=== PATIENT | male | born 1980 | race American Indian/Alaskan Native ===

== ENCOUNTER 2016-10-30 03:05 | Inpatient (IN) | payer SELFPAY ==
--- NOTE | 2016-10-30 05:43 | ED PDOC ---
HPI: Psych/Substance Abuse Time Seen by Provider: 10/30/16 03:25 Chief Complaint (Nursing): Psychiatric Evaluation Chief Complaint (Provider): Psychiatric Evaluation History Per: Patient History/Exam Limitations: no limitations Onset/Duration Of Symptoms: Days Current Symptoms Are (Timing): Still Present Additional Complaint(s): Kemar is a 36-year-old male with a history of chronic heroin abuse, who presents to the ED for crisis evaluation. Patient admits to having suicidal ideations today and has been hearing voices for 1 month. Denies prior psychiatric history. PMD: none reported Past Medical History Reviewed: Historical Data, Nursing Documentation, Vital Signs Vital Signs: Last Vital Signs Temp 97.6 F 10/30/16 03:24 Pulse 97 H 10/30/16 03:24 Resp 16 10/30/16 03:24 BP 169/103 H 10/30/16 03:24 Pulse Ox 98 10/30/16 03:24 - Medical History PMH: Post Traumatic Stress Disorder - Surgical History Surgical History: No Surg Hx - Family History Family History: States: Unknown Family Hx - Social History Current smoker - smoking cessation education provided: Yes (2 packs daily) Drugs: Opiates (heroin daily) - Immunization History Hx Tetanus Toxoid Vaccination: No Hx Influenza Vaccination: No Hx Pneumococcal Vaccination: No - Home Medications Home Medications: Ambulatory Orders Medication Instructions Recorded No Known Home Med 10/27/16 - Allergies Allergies/Adverse Reactions: Allergies Allergy/AdvReac Type Severity Reaction Status Date / Time No Known Allergies Allergy Verified 11/27/15 00:43 Review of Systems ROS Statement: Except As Marked, All Systems Reviewed And Found Negative Psych: Positive for: Suicidal ideation, Other (Hearing voices) Physical Exam - Reviewed Nursing Documentation Reviewed: Yes Vital Signs Reviewed: Yes - Physical Exam Cardiovascular/Chest: Positive for: Regular Rate, Rhythm. Negative for: Murmur Respiratory: Positive for: Normal Breath Sounds. Negative for: Accessory Muscle Use, Respiratory Distress Gastrointestinal/Abdominal: Positive for: Normal Exam, Soft. Negative for: Tenderness Neurologic/Psych: Positive for: Alert, Oriented - Laboratory Results Result Diagrams: 10/30/16 06:39 10/30/16 06:39 - ECG O2 Sat by Pulse Oximetry: 98 (RA) Pulse Ox Interpretation: Normal Medical Decision Making Medical Decision Making: Time: 05:27 Initial Impression: Psych evaluation Initial Plan: --Labs with urine drug screen, salicylate, and acetaminophen --EKG --Pending crisis evaluation --Pending medical clearance --Urine negative for infection, all labs negative utox positve for opiates and cocaine Time: 06:56 --Patient will be admitted inpatient to Psychiatry under service of Dr. Stewart for schizophrenia Scribe Attestation: Documented by Allie Roblero, acting as a scribe for Chet Thacker MD Provider Scribe Attestation: All medical record entries made by the Scribe were at my direction and personally dictated by me. I have reviewed the chart and agree that the record accurately reflects my personal performance of the history, physical exam, medical decision making, and the department course for this patient. I have also personally directed, reviewed, and agree with the discharge instructions and disposition. Disposition - Clinical Impression Clinical Impression: Schizophrenia - Patient ED Disposition Is Patient to be Admitted: Yes - Disposition Disposition Time: 05:45 Condition: STABLE
[2016-10-30 06:41] LABS: BASO % 0.5 % (0.0-2.0); EOS # 0.2 K/uL (0.0-0.7); EOS % 3.1 % (0.0-4.0); HEMATOCRIT 41.9 % (35.0-51.0); LYMPH # 1.9 K/uL (1.0-4.3); LYMPH % 32.6 % (20.0-40.0); MEAN CELL VOLUME 87.3 fl (80.0-94.0); MEAN CORPUSCULAR HEMOGLOBIN 28.5 pg (27.0-31.0); MEAN CORPUSCULAR HGB CONC 32.7 g/dL (33.0-37.0); MEAN PLATELET VOLUME 9.5 fl (7.2-11.7); MONO # 0.5 K/uL (0.0-0.8); MONO % 8.2 % (0.0-10.0); NEUT # 3.3 K/uL (1.8-7.0); NEUT % 55.6 % (50.0-75.0); NRBC % 0.1 % (0.0-0.0); RED CELL DISTRIBUTION WIDTH 14.4 % (11.5-14.5)
[2016-10-30 06:55] LABS: ALB/GLOB RATIO 1.4 (1.0-2.1); ALCOHOL SERUM < 10 mg/dl (0-10); ALKALINE PHOSPHATASE 57 U/L (38-126); ALT/SGPT 33 U/L (21-72); AST/SGOT 15 U/L (17-59); BILIRUBIN,TOTAL 0.3 mg/dl (0.2-1.3); BLOOD UREA NITROGEN 21 mg/dl (9-20); CALCIUM 9.3 mg/dL (8.4-10.2); CARBON DIOXIDE 29 mmol/L (22-30); CHLORIDE 103 mmol/L (98-107); GFR AFRICAN-AMERICAN > 60; GLUCOSE,RANDOM 89 mg/dL (75-110); POTASSIUM 4.2 MMOL/L (3.6-5.0); SODIUM 142 mmol/l (132-148); TOTAL PROTEIN 7.5 G/DL (6.3-8.2)
[2016-10-30 07:11] LABS: RBC URINE 2 /hpf (0-3); URINE BILIRUBIN NEGATIVE (NEGATIVE); URINE BLOOD SMALL (NEGATIVE); URINE COLOR YELLOW (YELLOW); URINE GLUCOSE (UA) NEG (Normal); URINE KETONE NEGATIVE (NEGATIVE); URINE LEUKOCYTE ESTERASE NEG Leu/uL (Negative); URINE PROTEIN NEGATIVE (NEGATIVE); URINE UROBILINOGEN 0.2-1.0 mg/dL (0.2-1.0); WBC URINE < 1 /hpf (0-5)
[2016-10-30 08:43] VITALS: O2SAT 99
[2016-10-30] MEDS ORDERED: Magnesium Hydroxide Susp 30 ml UD PO PRN (09:35)
[2016-10-30] MEDS ORDERED: Alum-Mag Hydrox-Simethicone Susp (30 mL) PO PRN (09:35)
[2016-10-30] MEDS ORDERED: DiphenhydrAMINE 50 mg/ml Inj IM PRN (09:35)
--- NOTE | 2016-10-30 10:35 | CARD ---
APPROVED REPORT EKG Measurement Heart [id number] IN [id number] [id number] <Conclusion> Sinus bradycardia Otherwise normal ECG
--- NOTE | 2016-10-30 11:15 | PCM.BM ---
<Amy Low - Last Filed: 10/30/16 11:13> Treatment Plan Problems - Problems identified on initial assessmt Problem 1 Date Initiated: 10/30/16 Status: Active Problem 2 Date Initiated: 10/30/16 Status: Active Problem 3 Date Initiated: 10/30/16 Status: Active Treatment assets and liabiliti Patient Assests: ADL independent, physically healthy Patient Liabilities: financial problems, poor support system, substance abuse, other (homelessness) - Milieu Protocol Maintain good personal hygiene: daily Encourage regular showers, daily Remind patient to perform daily oral care, daily Assist patient to perform ADL's Maintain personal safety: every shift Educate patient to report safety concerns to staff, every shift Monitor environment for contraband/sharps Medication safety: Monitor for expected outcome, potential side effects: every shift, Assess barriers to learning: every shift, Assess readiness for medication education: every shift Discharge/Continuing Care - Education Needs Education Needs: Patient Medication, Patient Diagnosis/Disease Process, Patient Coping Skills, Patient Activities of Daily Living, Patient Personal Hygiene/ Grooming - Discharge Discharge Criteria: Free of Suicidal thoughts, Normal sleep pattern, No longer exhibiting s/s of withdrawal <Amina Lopez - Last Filed: 11/01/16 16:10> Treatment assets and liabiliti Patient Assests: adapts well, cooperative, ADL independent, physically healthy, negotiates basic needs Patient Liabilities: financial problems, poor support system, substance abuse, other Family Contact Family involvement: Family/SO is involved Family contact: Patient agrees to contact Family contact name: Charlene(mother) ([phone]) Family contacted how many times per week?: 1 Family contact comment: [employer] placed call to patients mother to discuss precursors to hospitalization, collect further collateral and address family concerns. [employer] was unable to leave voicemail. [employer] to attempt call at later time. - Goals for Treatment Patient goals for treatment: Patient to be encouraged to attend 3-6 groups/ weekly to identify at least 2 contributing factors to worsening depression/ continued illicit substance abuse, for development of coping skills, and improvement in insight. Psychoeducation provided regarding benefits of medication management and compliance with aftercare to reduce risk of future hospitalizations and ensure safety in the community. Patient currently not agreeable to inpatient rehab referral but is agreeable to [facility], [facility] and [facility] referral upon further stabilization. Discharge/Continuing Care - Education Needs Education Needs: Family Medication, Family Community resources, Family Aftercare Safety Plan, Patient Medication, Patient Diagnosis/Disease Process, Patient Coping Skills, Patient Community resources, Patient Aftercare Safety Plan - Discharge Discharge Criteria: Tolerates medication w/o severe side effects, Free of Suicidal thoughts, Normal sleep pattern, Ability to care for self <Angelo Rockwell - Last Filed: 11/02/16 10:11>
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
--- NOTE | 2016-10-30 16:45 | CP.PCM.CON ---
History of Present Illness - History of Present Illness History of Present Illness: Pt is a 36 yo M with no significant medical history, admitted to psychiatry inpatient unit for schizophrenia. Patient does not offer any complaints at this time. Pt evasive during interview, reluctant to give answers; when answers were given, were one word answers; questions had to be repeated multiple times. Pt has poor eye contact and is poor/unreliable historian. PMH: none, denies Past surgical hx: denies Family hx: denies family hx stroke, [place], htn, dm2 Allergies: NKDA Medications: denies taking medications Social Hx: smokes 1/2 ppd for 10 yrs, drinks almost daily, uses marijuana, cocaine, heroin regularly (last heroin use before coming to ED, last cocaine use the day before). ROS: General: Denies fevers, chills. HEENT: Denies headaches, vision changes, hearing changes. Skin: Denies rash/color changes. Cardiovascular: Denies new onset chest pain, palpitations. Respiratory: Denies shortness of breath, cough. Gastrointestinal: Denies vomiting, diarrhea, constipation. No blood in the stool. MSK: Denies generalized weakness/pains. Neuro: Denies problems with balance, dizziness. Review of Systems - Review of Systems Review of Systems: as per HPI Past Patient History - Past Social History Smoking Status: Heavy Smoker > 10 Cigarettes Daily Drugs: Cocaine, Opiates (heroin daily) - CARDIAC Hx Cardiac Disorders: No - PULMONARY Hx Respiratory Disorders: No - NEUROLOGICAL Hx Neurological Disorder: No - HEENT Hx HEENT Problems: No - RENAL Hx Chronic Kidney Disease: No - ENDOCRINE/METABOLIC Hx Endocrine Disorders: No - HEMATOLOGICAL/ONCOLOGICAL Hx Blood Disorders: No - INTEGUMENTARY Hx Dermatological Problems: No - MUSCULOSKELETAL/RHEUMATOLOGICAL Hx Musculoskeletal Disorders: No - GASTROINTESTINAL Hx Gastrointestinal Disorders: No - GENITOURINARY/GYNECOLOGICAL Hx Genitourinary Disorders: No - PSYCHIATRIC Hx Substance Use: Yes - SURGICAL HISTORY Hx Surgeries: No - ANESTHESIA Hx Anesthesia: No Meds Allergies/Adverse Reactions: Allergies Allergy/AdvReac Type Severity Reaction Status Date / Time No Known Allergies Allergy Verified 11/27/15 00:43 - Medications Medications: Current Medications Acetaminophen (Tylenol 325mg Tab) 650 mg PO Q4 PRN PRN Reason: Pain, moderate (4-7) Al Hydrox/Mg Hydrox/Simethicone (Maalox Plus 30 Ml) 30 ml PO Q4 PRN PRN Reason: Dyspepsia Clonidine HCl (Catapres) 0.1 mg PO TID [facility] Stop: 11/02/16 09:00 Last Admin: 10/30/16 14:03 Dose: Not Given Diphenhydramine HCl (Benadryl) 50 mg IM Q6 PRN PRN Reason: Extrapyramidal S/S Unable PO Diphenhydramine HCl (Benadryl) 50 mg PO Q6 PRN PRN Reason: Extrapyramidal Symptoms Haloperidol (Haldol) 5 mg PO Q4 PRN PRN Reason: Agitation Haloperidol Lactate (Haldol) 5 mg IM Q4 PRN PRN Reason: Agitation, Unable to Take PO Loperamide HCl (Imodium) 2 mg PO QID PRN PRN Reason: Diarrhea Lorazepam (Ativan) 2 mg IM Q4 PRN PRN Reason: Anxiety/Agitation,Unable PO Lorazepam (Ativan) 2 mg PO Q4 PRN PRN Reason: Anxiety/Agitation Magnesium Hydroxide (Milk Of Magnesia) 30 ml PO HS PRN PRN Reason: Constipation Multivitamins/Minerals (Therapeutic-M Tab) 1 tab PO DAILY [facility] Physical Exam - Constitutional Appears: No Acute Distress, Unkempt - Head Exam Head Exam: ATRAUMATIC, NORMOCEPHALIC - Eye Exam Eye Exam: EOMI - ENT Exam ENT Exam: Mucous Membranes Moist - Respiratory Exam Respiratory Exam: Clear to Auscultation Bilateral, NORMAL BREATHING PATTERN. absent: Wheezes, Respiratory Distress - Cardiovascular Exam Cardiovascular Exam: REGULAR RHYTHM, +S1, +S2 - GI/Abdominal Exam GI & Abdominal Exam: Normal Bowel Sounds, Soft - Extremities Exam Extremities exam: Positive for: full ROM, normal capillary refill, normal inspection - Neurological Exam Neurological exam: Alert, Oriented x3 - Psychiatric Exam Psychiatric exam: Flat Affect - Skin Skin Exam: Dry, Intact, Normal Color, Warm Results - Vital Signs Recent Vital Signs: Last Vital Signs Temp 98.0 F 10/30/16 08:42 Pulse 81 10/30/16 08:42 Resp 18 10/30/16 08:42 BP 135/84 10/30/16 08:42 Pulse Ox 99 10/30/16 08:42 - Labs Result Diagrams: 10/30/16 06:39 10/30/16 06:39 Assessment & Plan - Assessment and Plan (Free Text) Assessment: This is a 36 yo M with no known significant PMH who is admitted to inpatient psychiatric unit for schizophrenia. Plan: 1. Schizophrenia -management by primary inpt psychiatric team 2. Polysubstance abuse -monitor for signs of withdrawal; withdrawal protocols
[2016-10-31 08:39] LABS: T4 5.95 ug/dl (5.5-11.0)
[2016-10-31 08:52] LABS: THYROID STIMULATING HORMONE 1.16 mIU/ML (0.46-4.68)
[2016-10-31] MEDS: Multivitamin With Minerals Tab PO SCH (09:10)
--- NOTE | 2016-10-31 12:22 | PCM.PYCHPN ---
Psychiatric Progress Note - Psychiatric Progress Note Patient seen today, length of contact: discussed with team Patient Chief Complaint: i'll go to the next group Problems Identified/Issues Discussed: pt seen and encouraged to go to groups. he states he takes depakote and seroquel but does not know the doses. he is isolating in room. more alert today. reports some vague withdrawal symptoms. Medication Change: Yes (restart home meds) Medical Record Reviewed: Yes Mental Status Examination - Cognitive Function Orientation: Person, Place, Situation Memory: Intact Attention: WNL Concentration: WNL Association: WN Fund of Knowledge: [facility] Decription of patient's judgement and insights: fair - Mood Mood: Depressed - Affect Affect: Constricted - Speech Speech: Appropriate - Formal Thought Process Formal Thought Process: No Impairment Psychotic Thoughts and Behaviors: reports some ah, but vague - Suicidal Ideation Suicidal Ideation: No - Homicidal Ideation Homicidal Ideation: No Goal/Treatment Plan - Goal/Treatment Plan Need for Continued Stay: Remain at risks for inpatient hospitalization, Severe functional impairment Progress Toward Problem(s) and Goals/Treatment Plan: opioid dependence schizoaffective disorder continue current treatment start seroquel and depakote as pt states he took those most recently and found them helpful encourage participation in groups disposition planning Estimated Date of D/C: 11/02/16
[2016-10-31] MEDS: Divalproex 500 mg DR(BID formulation) PO SCH (18:09)
[2016-11-01] MEDS: Divalproex 500 mg DR(BID formulation) PO SCH ×2 (09:16→17:48)
[2016-11-01] MEDS: Multivitamin With Minerals Tab PO SCH (09:16)
--- NOTE | 2016-11-01 10:56 | PCM.PYCHPN ---
Psychiatric Progress Note - Psychiatric Progress Note Patient seen today, length of contact: discussed with team Patient Chief Complaint: i'll be ok Problems Identified/Issues Discussed: pt more visible in milieu. c/o some voices that seem worse at night. taking medications as prescribed. no c/o side effects. Medication Change: Yes ( ) Medical Record Reviewed: Yes Mental Status Examination - Cognitive Function Orientation: Person, Place, Situation Memory: Intact Attention: WNL Concentration: WNL Association: WNL Fund of Knowledge: [facility] Decription of patient's judgement and insights: fair - Mood Mood: Depressed - Affect Affect: Constricted - Speech Speech: Appropriate - Formal Thought Process Formal Thought Process: Hallucinations Psychotic Thoughts and Behaviors: reports some ah, but vague - Suicidal Ideation Suicidal Ideation: No - Homicidal Ideation Homicidal Ideation: No Goal/Treatment Plan - Goal/Treatment Plan Need for Continued Stay: Remain at risks for inpatient hospitalization, Severe functional impairment Progress Toward Problem(s) and Goals/Treatment Plan: opioid dependence schizoaffective disorder continue current treatment continue depakote- check level sat am increase seroquel to 100mg hs encourage participation in groups disposition planning Estimated Date of D/C: 11/02/16
[2016-11-01] MEDS: Benzocaine/Menthol (Cepacol) Lozenge PO PRN (18:32)
[2016-11-02] MEDS: Multivitamin With Minerals Tab PO SCH (09:28)
[2016-11-02] MEDS: Divalproex 500 mg DR(BID formulation) PO SCH ×2 (09:28→21:05)
--- NOTE | 2016-11-02 11:54 | PCM.PYCHPN ---
Psychiatric Progress Note - Psychiatric Progress Note Patient seen today, length of contact: discussed with team Patient Chief Complaint: i'll stay i guess Problems Identified/Issues Discussed: pt came to treatment team. admits to drug use. ambivalent about outpt treatment , but seems agreeable to [facility] referral. asking to make a call to check on his children who are with his mother. denies any voices today. Medical Problems: denies Medication Change: Yes ( ) Medical Record Reviewed: Yes Mental Status Examination - Cognitive Function Orientation: Person, Place, Situation Memory: Intact Attention: WNL Concentration: WNL Association: WN Fund of Knowledge: [facility] Decription of patient's judgement and insights: fair - Mood Mood: Depressed - Affect Affect: Constricted - Speech Speech: Appropriate - Formal Thought Process Formal Thought Process: No Impairment Psychotic Thoughts and Behaviors: denies any ah today - Suicidal Ideation Suicidal Ideation: No - Homicidal Ideation Homicidal Ideation: No Goal/Treatment Plan - Goal/Treatment Plan Need for Continued Stay: Remain at risks for inpatient hospitalization, Severe functional impairment Progress Toward Problem(s) and Goals/Treatment Plan: opioid dependence schizoaffective disorder continue current treatment continue depakote- check level tomorrow continue to encourage participation in groups continue seroquel 100mg hs disposition planning- refer to [facility] Estimated Date of D/C: 11/05/16
[2016-11-02] MEDS: Benzocaine/Menthol (Cepacol) Lozenge PO PRN (15:43)
[2016-11-03] MEDS: Divalproex 500 mg DR(BID formulation) PO SCH ×2 (09:18→17:24)
[2016-11-03] MEDS: Multivitamin With Minerals Tab PO SCH (09:18)
--- NOTE | 2016-11-03 09:51 | PCM.PYCHPN ---
Psychiatric Progress Note - Psychiatric Progress Note Patient seen today, length of contact: discussed with team Patient Chief Complaint: pt reports decrease in hallucinations .pt c/0 increase in back pain.pt has h/o substance abuse and still has poor insight about it Medication Change: Yes ( ) Medical Record Reviewed: Yes Mental Status Examination - Cognitive Function Orientation: Person, Place, Situation Memory: Intact Attention: WNL Concentration: WNL Association: WNL Fund of Knowledge: WNL - Mood Mood: Depressed - Affect Affect: Constricted - Speech Speech: Appropriate - Formal Thought Process Formal Thought Process: No Impairment - Suicidal Ideation Suicidal Ideation: No - Homicidal Ideation Homicidal Ideation: No Goal/Treatment Plan - Goal/Treatment Plan Need for Continued Stay: Remain at risks for inpatient hospitalization, Severe functional impairment Progress Toward Problem(s) and Goals/Treatment Plan: will continue to further stabilize pt by titrating seroquel up and monitor the pt for follow up d/c planning as per dr nguyen . Estimated Date of D/C: 11/05/16
[2016-11-03] MEDS: Benzocaine/Menthol (Cepacol) Lozenge PO PRN (21:08)
[2016-11-04] MEDS: Multivitamin With Minerals Tab PO SCH (08:47)
[2016-11-04] MEDS: Divalproex 500 mg DR(BID formulation) PO SCH ×2 (08:47→17:24)
--- NOTE | 2016-11-04 11:57 | PCM.PYCHPN ---
Psychiatric Progress Note - Psychiatric Progress Note Patient seen today, length of contact: discussed with team Patient Chief Complaint: pt reports decrease in hallucinations .pt c/0 increase in back pain.pt has h/o substance abuse and still has poor insight about it pt is upset and requesting 48 hour letter Medication Change: Yes ( ) Medical Record Reviewed: Yes Mental Status Examination - Cognitive Function Orientation: Person, Place, Situation Memory: Intact Attention: WNL Concentration: WNL Association: WNL Fund of Knowledge: WNL - Mood Mood: Depressed - Affect Affect: Constricted - Speech Speech: Appropriate - Formal Thought Process Formal Thought Process: No Impairment - Suicidal Ideation Suicidal Ideation: No - Homicidal Ideation Homicidal Ideation: No Goal/Treatment Plan - Goal/Treatment Plan Need for Continued Stay: Remain at risks for inpatient hospitalization, Severe functional impairment Progress Toward Problem(s) and Goals/Treatment Plan: will continue to further stabilize pt by titrating seroquel up and monitor the pt for follow up d/c planning as per dr nguyen . Estimated Date of D/C: 11/05/16
[2016-11-05] MEDS: Benzocaine/Menthol (Cepacol) Lozenge PO PRN (09:41)
[2016-11-05] MEDS: Divalproex 500 mg DR(BID formulation) PO SCH (09:41)
[2016-11-05] MEDS: Multivitamin With Minerals Tab PO SCH (09:41)
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
[2016-11-05 11:52] VITALS: BP 133/76; PULSE 60; RESP 16; TEMP 96.4
== END 2016-11-05 12:04 | disposition home or self-care (01) | DRG 885 ==
LOC: H.ER 03:05 → H.ERHOLD 07:04 → H.PSYCH 09:06
PROVIDERS: ADMIT Psychiatry & Neurology Psychiatry; ATTEND Psychiatry & Neurology Psychiatry
PROC: GZHZZZZ Group Psychotherapy (ICD-10-PCS; principal; 2016-10-30)
PROC: GZ58ZZZ Individual Psychotherapy, Cognitive-Behavioral (ICD-10-PCS; 2016-10-30)
DX: F25.9 Schizoaffective disorder, unspecified (principal); F11.20 Opioid dependence, uncomplicated; R45.851 Suicidal ideations; F12.90 Cannabis use, unspecified, uncomplicated; F14.10 Cocaine abuse, uncomplicated; F17.210 Nicotine dependence, cigarettes, uncomplicated; F43.10 Post-traumatic stress disorder, unspecified; Z91.14 Patient's other noncompliance with medication regimen; Z59.0 Homelessness

== ENCOUNTER 2017-06-21 08:52 | Inpatient (IN) | payer OTHER ==
[2017-06-21 09:00] VITALS: O2SAT 100
[2017-06-21 10:39] LABS: BASO # 0.1 K/uL (0.0-0.2); BASO % 0.7 % (0.0-2.0); EOS % 0.1 % (0.0-4.0); HEMOGLOBIN 13.2 g/dL (12.0-18.0); LYMPH # 1.9 K/uL (1.0-4.3); LYMPH % 19.7 % (20.0-40.0); MEAN CELL VOLUME 84.4 fl (80.0-94.0); MEAN CORPUSCULAR HEMOGLOBIN 28.9 pg (27.0-31.0); MEAN CORPUSCULAR HGB CONC 34.2 g/dL (33.0-37.0); MONO # 0.9 K/uL (0.0-0.8); MONO % 9.1 % (0.0-10.0); NEUT # 6.7 K/uL (1.8-7.0); NEUT % 70.4 % (50.0-75.0); NRBC % 0.1 % (0.0-0.0); RBC 4.56 Mil/uL (4.40-5.90); RED CELL DISTRIBUTION WIDTH 14.7 % (11.5-14.5); WHITE BLOOD COUNT 9.5 K/uL (4.8-10.8)
[2017-06-21 10:46] LABS: BLOOD UREA NITROGEN 14 mg/dl (9-20); CALCIUM 9.3 mg/dL (8.4-10.2); GFR AFRICAN-AMERICAN > 60; GFR NON-AFRICAN AMERICAN > 60
--- NOTE | 2017-06-21 11:21 | ED PDOC ---
HPI: Psych/Substance Abuse Time Seen by Provider: 06/21/17 09:16 Chief Complaint (Nursing): Psychiatric Evaluation Chief Complaint (Provider): Psychiatric Evaluation History Per: Patient History/Exam Limitations: no limitations Onset/Duration Of Symptoms: Persistent Associated Symptoms: Depression Additional Complaint(s): 37 years old male with depression presents to the emergency department today for mental evaluation associated with hemoptysis, which happened 5 days ago. Patient states hempotysis symptoms improved since onset. He reports had been prescribe Seroquel and Dopaquel but he states they stopped working for his condition. He denies any headache, dizziness, or receiving any other medications. Past Medical History Reviewed: Historical Data, Nursing Documentation, Vital Signs Vital Signs: Last Vital Signs Temp 98.4 F 06/21/17 08:57 Pulse 87 06/21/17 08:57 Resp 16 06/21/17 08:57 BP 106/65 06/21/17 08:57 Pulse Ox 100 06/21/17 08:57 - Medical History PMH: Post Traumatic Stress Disorder Denies: Diabetes, Hepatitis, HIV, HTN, Chronic Kidney Disease, Seizures, Sexually Transmitted Disease - Surgical History Surgical History: No Surg Hx - Family History Family History: States: Unknown Family Hx - Social History Current smoker - smoking cessation education provided: Yes (cigarettes) Alcohol: Occasional Drugs: Denies - Immunization History Hx Tetanus Toxoid Vaccination: No Hx Influenza Vaccination: No Hx Pneumococcal Vaccination: No - Home Medications Home Medications: Ambulatory Orders Medication Instructions Recorded Divalproex [Depakote DR(*BID*)] 500 mg PO BID #60 tcp 11/05/16 Multimineral/Multivitamin 1 tab PO DAILY #30 tab 11/05/16 [Therapeutic-M Tab] QUEtiapine [Seroquel] 25 mg PO HS #30 tab 11/05/16 QUEtiapine [Seroquel] 100 mg PO HS #30 tab 11/05/16 - Allergies Allergies/Adverse Reactions: Allergies Allergy/AdvReac Type Severity Reaction Status Date / Time No Known Allergies Allergy Verified 11/27/15 00:43 Review of Systems ROS Statement: Except As Marked, All Systems Reviewed And Found Negative Respiratory: Positive for: Hemoptysis (5 days ago but symptoms improved) Neurological: Negative for: Headache Psych: Positive for: Depression Physical Exam - Reviewed Nursing Documentation Reviewed: Yes Vital Signs Reviewed: Yes - Physical Exam Appears: Positive for: Non-toxic, No Acute Distress Head Exam: Positive for: ATRAUMATIC, NORMOCEPHALIC Skin: Positive for: Normal Color, Warm Eye Exam: Positive for: Normal appearance, EOMI, PERRL ENT: Positive for: Normal ENT Inspection Neck: Positive for: Normal, Supple Cardiovascular/Chest: Positive for: Regular Rate, Rhythm Respiratory: Positive for: Normal Breath Sounds. Negative for: Wheezing, Respiratory Distress Gastrointestinal/Abdominal: Positive for: Normal Exam, Soft. Negative for: Tenderness Back: Positive for: Normal Inspection Extremity: Positive for: Normal ROM Neurologic/Psych: Positive for: Alert, Oriented (x 3) - Laboratory Results Result Diagrams: 06/21/17 10:30 06/21/17 10:30 - ECG O2 Sat by Pulse Oximetry: 100 (RA) Pulse Ox Interpretation: Normal - Radiology X-Ray: Viewed By Nc X-Ray Interpretation: No Acute Disease Medical Decision Making Medical Decision Making: Initial Impression: Initial Plan: --EKG --Drug screen --Crisis evaluation --Urine dipstick (POC) --Chest X-Ray Time 1045 - Crisis evaluation findings: per Dr. Pichardo patient is admitted for depression. Scribe Attestation: Documented by Asha Colón acting as a scribe for [place] Zarco MD Provider Scribe Attestation: All medical record entries made by the Scribe were at my direction and personally dictated by me. I have reviewed the chart and agree that the record accurately reflects my personal performance of the history, physical exam, medical decision making, and the department course for this patient. I have also personally directed, reviewed, and agree with the discharge instructions and disposition. 11.30a- chest x-ray normal per my reading. labs normal. Patient is medically cleared. Disposition - Clinical Impression Clinical Impression: Depression - Patient ED Disposition Is Patient to be Admitted: Yes Doctor Will See Patient In The: Hospital - Disposition Disposition: Transfer of Care Disposition Time: 11:25 Condition: STABLE Instructions: Depression Forms: RetiDiag (Tamazight) - Pt Status Changed To: Hospital Disposition Of: Inpatient - Admit Certification Admit to Inpatient:: After my assessment, the patient will require hospitalization for at least two midnights. This is because of the severity of symptoms shown, intensity of services needed, and/or the medical risk in this patient being treated as an outpatient. - POA Present On Arrival: None
--- NOTE | 2017-06-21 11:51 | RAD ---
HISTORY: COMPARISON: 11/27/2015. TECHNIQUE: Chest PA and lateral FINDINGS: LINES AND TUBES: None. LUNG AND PLEURA: The lungs are well inflated and clear. HEART AND MEDIASTINUM: The heart is not enlarged. The hilar and mediastinal contours are within normal limits. SKELETAL STRUCTURES: The bony structures are within normal limits for the patient's age. VISUALIZED UPPER ABDOMEN: Normal. OTHER FINDINGS: None. IMPRESSION: No active pulmonary disease.
[2017-06-21 13:02] LABS: BARBITURATES, UR NEGATIVE (NEGATIVE)
[2017-06-21 13:10] LABS: BENZODIAZEPINES, UR NEGATIVE (NEGATIVE); OPIATES, UR NEGATIVE (NEGATIVE); PHENCYCLIDINE, UR NEGATIVE (NEGATIVE)
[2017-06-21] MEDS ORDERED: DiphenhydrAMINE 50 mg/ml Inj IM PRN (14:41)
[2017-06-21] MEDS ORDERED: Magnesium Hydroxide Susp 30 ml UD PO PRN (14:41)
[2017-06-21] MEDS ORDERED: Alum-Mag Hydrox-Simethicone Susp (30 mL) PO PRN (14:41)
--- NOTE | 2017-06-21 14:44 | PCM.BM ---
<Delphine Lazaro - Last Filed: 06/21/17 14:42> Treatment Plan Problems - Problems identified on initial assessmt Hopelessness/Helplessness Date Initiated: 06/21/17 Time Initiated: 14:43 Assessment reference: NA Status: Active Treatment assets and liabiliti Patient Assests: adapts well, cooperative, ADL independent, physically healthy, negotiates basic needs Patient Liabilities: live alone, poor support system, substance abuse - Milieu Protocol Maintain good personal hygiene: daily Encourage regular showers, every shift Remind patient to perform daily oral care, every shift Assist patient to perform ADL's Conduct patient checks and document Observation sheet: Q15 minutes Maintain personal safety: every shift Educate patient to report safety concerns to staff, every shift Monitor environment for contraband/sharps Medication safety: Monitor for expected outcome, potential side effects: every shift, Assess barriers to learning: every shift, Assess readiness for medication education: every shift <Amina Lopez - Last Filed: 06/24/17 16:24> Treatment Plan Problems - Problems identified on initial assessmt Hopelessness/Helplessness Date Initiated: 06/21/17 Time Initiated: 14:43 Assessment reference: NA Status: Active Denial Date Initiated: 06/24/17 Time Initiated: 11:09 Assessment reference: NA Status: Active Treatment assets and liabiliti Patient Assests: adapts well, cooperative, resourceful, self-reliant, ADL independent, physically healthy, good support system (reports having loving/ supportive family but declined to sign consent), negotiates basic needs Patient Liabilities: live alone, poor support system, substance abuse Family Contact Family involvement: Family/SO is involved Family contact: Patient declines to allow family contact at present - Goals for Treatment Patient goals for treatment: Patient to continue stabilization on 3NP through medication management and group/supportive therapy. Patient to be encouraged to attend groups regularly to promote self-awareness, sobriety, and improve insight , coping skills and self-esteem. Patient to be provided with referral for appropriate level of aftercare to reduce risk of future hospitalizations and ensure safety in the community. Discharge/Continuing Care - Education Needs Education Needs: Patient Medication, Patient Diagnosis/Disease Process, Patient Coping Skills, Patient Anger Management skills, Patient Placement options, Patient Aftercare Safety Plan - Discharge Discharge Criteria: Tolerates medication w/o severe side effects, Free of Suicidal thoughts, Free of Homicidal thoughts, Free of paranoid thoughts, Free of agitation, Normal sleep pattern, Ability to care for self, No longer exhibiting s/s of withdrawal, Reduction of target symptoms Discharge to:: Home, Other (inpatient rehab referrals vs. [facility]) - Treatment Team Participation Patient/Family/SO Statement: 06/24/17 16:26 Pt. attended tx team this morning to discuss precursors to hospitalization, progress on 3NP and aftercare. Pt. reports feeling as though the medications are not working. Pt. continues to report sxs of depression, feelings of hopelessness and sleep disturbances (nightmares). Pt. presents as somewhat evasive and vague when providing collateral regarding housing, social supports and substance abuse. Pt. presents as tangential and as a poor historian. Speech : often mumbled. Patient requesting to have referrals faxed to inpatient rehabs. Systems Security Consultant provided psychoeducation regarding nature of tx provided on 3NP and explained that referrals will be initiated but that it is not guaranteed that patient will be provided with a rehab bed immediately upon discharge. Systems Security Consultant explained that in the event that patient is stabilized prior to rehab bed being made available, patient will be discharged with outpatient mental health/substance abuse services and will have to follow-up with rehab referrals independently. Patient expressed understanding of the above and is agreeable. Discussed with Family/SO: No Was Patient/Family/SO present at Treatment Team Meeting: Yes <Radha Pichardo - Last Filed: 06/25/17 10:48> - Diagnosis (1) Depression Status: Acute Interventions: psychotherapy, pharmacotherapy 06/25/17 10:47
[2017-06-21 15:18] LABS: HDL CHOLESTEROL 36 MG/DL (30-70)
[2017-06-21 15:29] LABS: LDL CHOLESTEROL 52 mg/dL (0-129)
--- NOTE | 2017-06-21 16:41 | PCM.PSYCH ---
Initial Psychiatric Evaluation - Initial Psychiatric Evaluation Type of Admission: Voluntary Legal Status: Capacity Chief Complaint (in patient's own words): I am depressed Patient's Reaction to Hospitalization: pt requested help History of Present Illness and Precipitating Events: pt with previous diagnosis of opiate use disorder and schizoaffective disorder, last hospitalized at [facility] 11/01, since then non compliant with medications or follow up, pt has been homless, having financial difficulties, relapsed on cocaine and cannabis, pt has been depressed in context of substance use for last month, on day of evaluation pt presented to ER having suicidal ideations on evaluation pt guarded, not cooperative with interview, poor eye contact, reported passive suicidal ideations without intent or plan on unit pt denied homicidal ideations, denied command hallucinations Current Medications: Active Medications Generic Name Dose Route Start Last Admin Trade Name Freq PRN Reason Stop Dose Admin Acetaminophen 650 mg 06/21/17 14:41 Tylenol 325mg Tab PO Q4 PRN Pain, moderate (4-7) Al Hydrox/Mg Hydrox/Simethicone 30 ml 06/21/17 14:41 Maalox Plus 30 Ml PO Q4 PRN Dyspepsia Diphenhydramine HCl 50 mg 06/21/17 14:41 Benadryl IM Q6 PRN Extrapyramidal S/S Unable PO Diphenhydramine HCl 50 mg 06/21/17 14:41 Benadryl PO Q6 PRN Extrapyramidal Symptoms Haloperidol 5 mg 06/21/17 14:41 Haldol PO Q4 PRN Agitation Haloperidol Lactate 5 mg 06/21/17 14:41 Haldol IM Q4 PRN Agitation, Unable to Take PO Lorazepam 2 mg 06/21/17 14:41 Ativan IM Q4 PRN Anxiety/Agitation,Unable PO Lorazepam 2 mg 06/21/17 14:41 Ativan PO Q4 PRN Anxiety/Agitation Magnesium Hydroxide 30 ml 06/21/17 14:41 Milk Of Magnesia PO HS PRN Constipation Quetiapine Fumarate 100 mg 06/21/17 22:00 Seroquel PO HS ERICK Quetiapine Fumarate 50 mg 06/21/17 17:00 Seroquel PO BID ERICK Past Psychiatric History - Past Psychiatric History Explanation of prior treatment: inpatient hospitalizations, hx of non compliance with treatment History of ETOH/Drug Use: hx of opiate cocaine and cannabis use Pertinent Medical Hx (Current Medical&Sleep Prob, Allergies): Allergies Allergy/AdvReac Type Severity Reaction Status Date / Time No Known Allergies Allergy Verified 11/27/15 00:43 Divalproex [Depakote DR(*BID*)] 500 mg PO BID #60 tcp 11/05/16 Multimineral/Multivitamin [Therapeutic-M Tab] 1 tab PO DAILY #30 tab 11/05/16 QUEtiapine [Seroquel] 25 mg PO HS #30 tab 11/05/16 QUEtiapine [Seroquel] 100 mg PO HS #30 tab 11/05/16 Mental Status Examination - Personal Presentation Personal Presentation: Looks stated age Additional comments: guarded, uncooperative - Affect Affect: Constricted, Depressed - Motor Activity Motor Activity: Psychomotor Retardation - Reliability in Providing Information Reliability in Providing Information: Poor, due to alteration in thoughts, Poor , due to altered mood - Speech Speech: Irrelevant Additional comments: underproductive - Mood Mood: Depressed, Anxious - Formal Thought Process Formal Thought Process: Paranoia - Obsessions/Compulsions Obsessions: No Compulsions: No - Cognitive Functions Orientation: Person, Place Attention/Concentration: Easily distracted Abstract Thinking: Reasnor Judgement: Imparied, as evidence by: Poor judgement, Imparied, as evidence by: Lack of insight into illness - Risk Risk: Withdrawal, Diminished functioning - Strength & Assets Inventory Strength & Assets Inventory: Life experience - Limitations Additional comments: poor compliance with treatment DSM 5 DX - DSM 5 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
--- NOTE | 2017-06-21 18:06 | CARD ---
APPROVED REPORT EKG Measurement Heart [id number] <Conclusion> Normal sinus rhythm Normal ECG
[2017-06-22 07:58] LABS: BASO % 0.8 % (0.0-2.0); EOS # 0.1 K/uL (0.0-0.7); EOS % 1.5 % (0.0-4.0); HEMOGLOBIN 13.6 g/dL (12.0-18.0); LYMPH % 34.9 % (20.0-40.0); MEAN CELL VOLUME 85.5 fl (80.0-94.0); MEAN CORPUSCULAR HEMOGLOBIN 28.3 pg (27.0-31.0); MEAN CORPUSCULAR HGB CONC 33.1 g/dL (33.0-37.0); MEAN PLATELET VOLUME 8.9 fl (7.2-11.7); MONO # 0.6 K/uL (0.0-0.8); MONO % 10.6 % (0.0-10.0); NEUT # 2.9 K/uL (1.8-7.0); NEUT % 52.2 % (50.0-75.0); NRBC % 0.1 % (0.0-0.0); RBC 4.8 Mil/uL (4.40-5.90); RED CELL DISTRIBUTION WIDTH 14.8 % (11.5-14.5); WHITE BLOOD COUNT 5.6 K/uL (4.8-10.8)
[2017-06-22 08:31] LABS: T4 5.48 ug/dl (5.5-11.0)
[2017-06-22 08:53] LABS: ALB/GLOB RATIO 1.3 (1.0-2.1); ALBUMIN 4.2 g/dL (3.5-5.0); ALT/SGPT 30 U/L (21-72); AST/SGOT 15 U/L (17-59); BLOOD UREA NITROGEN 11 mg/dl (9-20); CALCIUM 9.5 mg/dL (8.4-10.2); GFR AFRICAN-AMERICAN > 60; GFR NON-AFRICAN AMERICAN > 60; HDL CHOLESTEROL 35 MG/DL (30-70); LDL CHOLESTEROL 54 mg/dL (0-129)
--- NOTE | 2017-06-22 11:19 | PCM.PYCHPN ---
Psychiatric Progress Note - Psychiatric Progress Note Patient seen today, length of contact: Patient evaluated, chart reviewed Patient Chief Complaint: "I'm trying not to have bad thoughts." Problems Identified/Issues Discussed: Patient seemed disinterested in talking to song writer. Railroad Yard Worker had to ask patient several times to meet with her. He reports that he continues to feel depressed and is worried that he will have suicidal thoughts, but denies current active suicidal thought/plan/intent. Denies AH/VH/paranoia/delusions. We discussed continued titration of Seroquel. Medication Change: Yes (Increase Seroquel) Medical Record Reviewed: Yes Consults ordered or reviewed: Medicine consult Mental Status Examination - Cognitive Function Orientation: Person, Place, Situation Memory: Intact Attention: WNL Concentration: WNL Association: WNL Fund of Knowledge: [facility] Decription of patient's judgement and insights: Fair I/J - Mood Mood: Depressed, Anxious - Affect Affect: Constricted, Depressed - Speech Speech: Appropriate - Formal Thought Process Formal Thought Process: No Impairment Psychotic Thoughts and Behaviors: Denies AH/VH/paranoia/delusions - Suicidal Ideation Suicidal Ideation: No - Homicidal Ideation Homicidal Ideation: No Goal/Treatment Plan - Goal/Treatment Plan Need for Continued Stay: Severe depression anxiety, Discharge may exacerbated symptoms Progress Toward Problem(s) and Goals/Treatment Plan: Cocaine induced mood disorder, Cocaine and Cannabis use disorders, r/o Schizoaffective Disorder -Individual and group therapy -Medicine consult -Increase Seroquel -Nicotine patch -Psychoeducation -Disposition planning Estimated Date of D/C: 06/26/17 - Smoking Cessation Smoking Cessation Initiated: Yes
--- NOTE | 2017-06-22 18:03 | CP.PCM.CON ---
History of Present Illness - History of Present Illness History of Present Illness: 37 yo male with history of Schizoaffective DO and substance abuse admitted in psyche unit because of depression and suicidal ideation Review of Systems - Review of Systems All systems: reviewed and no additional remarkable complaints except (aside from those mentioned above, 12 point system review were negative by me) Past Patient History - Past Social History Smoking Status: Heavy Smoker > 10 Cigarettes Daily Alcohol: > 2 Drinks/Day Drugs: Denies - CARDIAC Hx Hypertension: No - PULMONARY Hx Tuberculosis: No - NEUROLOGICAL Hx Seizures: No - HEENT Hx HEENT Problems: No - RENAL Hx Chronic Kidney Disease: No - ENDOCRINE/METABOLIC Hx Endocrine Disorders: No - HEMATOLOGICAL/ONCOLOGICAL Hx Human Immunodeficiency Virus (HIV): No - INTEGUMENTARY Hx Dermatological Problems: No - MUSCULOSKELETAL/RHEUMATOLOGICAL Hx Musculoskeletal Disorders: No - GASTROINTESTINAL Hx Gastrointestinal Disorders: No - GENITOURINARY/GYNECOLOGICAL Hx Sexually Transmitted Disorders: No - PSYCHIATRIC Hx Substance Use: Yes - SURGICAL HISTORY Hx Surgeries: No - ANESTHESIA Hx Anesthesia: No Meds Allergies/Adverse Reactions: Allergies Allergy/AdvReac Type Severity Reaction Status Date / Time No Known Allergies Allergy Verified 11/27/15 00:43 - Medications Medications: Current Medications Acetaminophen (Tylenol 325mg Tab) 650 mg PO Q4 PRN PRN Reason: Pain, moderate (4-7) Al Hydrox/Mg Hydrox/Simethicone (Maalox Plus 30 Ml) 30 ml PO Q4 PRN PRN Reason: Dyspepsia Diphenhydramine HCl (Benadryl) 50 mg IM Q6 PRN PRN Reason: Extrapyramidal S/S Unable PO Diphenhydramine HCl (Benadryl) 50 mg PO Q6 PRN PRN Reason: Extrapyramidal Symptoms Haloperidol (Haldol) 5 mg PO Q4 PRN PRN Reason: Agitation Haloperidol Lactate (Haldol) 5 mg IM Q4 PRN PRN Reason: Agitation, Unable to Take PO Lorazepam (Ativan) 2 mg IM Q4 PRN PRN Reason: Anxiety/Agitation,Unable PO Lorazepam (Ativan) 2 mg PO Q4 PRN PRN Reason: Anxiety/Agitation Magnesium Hydroxide (Milk Of Magnesia) 30 ml PO HS PRN PRN Reason: Constipation Nicotine (Nicoderm Cq) 1 patch TD DAILY ERICK Last Admin: 06/22/17 13:37 Dose: 1 patch Quetiapine Fumarate (Seroquel) 100 mg PO DAILY ERICK Quetiapine Fumarate (Seroquel) 200 mg PO HS ERICK Physical Exam - Constitutional Appears: No Acute Distress - Head Exam Head Exam: ATRAUMATIC - Eye Exam Eye Exam: absent: Scleral icterus - ENT Exam ENT Exam: Mucous Membranes Moist - Neck Exam Neck exam: Negative for: Meningismus - Respiratory Exam Respiratory Exam: absent: Rales, Rhonchi, Wheezes, Respiratory Distress - Cardiovascular Exam Cardiovascular Exam: REGULAR RHYTHM, +S1, +S2 - GI/Abdominal Exam GI & Abdominal Exam: Soft. absent: Tenderness - Rectal Exam Rectal Exam: Deferred - Extremities Exam Extremities exam: Negative for: pedal edema - Back Exam Back exam: NORMAL INSPECTION - Neurological Exam Neurological exam: Alert, Oriented x3 - Psychiatric Exam Psychiatric exam: Normal Affect - Skin Skin Exam: Dry, Intact Results - Vital Signs Recent Vital Signs: Last Vital Signs Temp 98.9 F 06/22/17 09:00 Pulse 90 06/22/17 09:00 Resp 18 06/22/17 09:00 BP 130/84 06/22/17 09:00 Pulse Ox 100 06/21/17 12:32 - Labs Result Diagrams: 06/22/17 07:30 06/22/17 07:30 Labs: Laboratory Results - last 24 hr 06/21/17 06/22/17 06/22/17 10:30 07:30 07:30 WBC 5.6 RBC 4.80 Hgb 13.6 Hct 41.0 MCV 85.5 MCH 28.3 MCHC 33.1 RDW 14.8 H Plt Count 190 MPV 8.9 Neut % (Auto) 52.2 Lymph % (Auto) 34.9 [place] % (Auto) 10.6 H Eos % (Auto) 1.5 Baso % (Auto) 0.8 Neut # (Auto) 2.9 Lymph # (Auto) 2.0 [place] # (Auto) 0.6 Eos # (Auto) 0.1 Baso # (Auto) 0.0 Sodium 144 Potassium 4.1 Chloride 101 Carbon Dioxide 30 Anion Gap 17 BUN 11 Creatinine 1.1 Est GFR ( Amer) > 60 Est GFR (Non-Af Amer) > 60 Random Glucose 80 Hemoglobin A1c 5.7 Calcium 9.5 Total Bilirubin 0.3 AST 15 L ALT 30 Alkaline Phosphatase 51 Total Protein 7.4 Albumin 4.2 Globulin 3.2 Albumin/Globulin Ratio 1.3 Triglycerides 60 Cholesterol 111 LDL Cholesterol Direct 54 HDL Cholesterol 35 Thyroxine (T4) 5.48 L TSH 3rd Generation 1.01 RPR 06/22/17 07:30 WBC RBC Hgb Hct MCV MCH MCHC RDW Plt Count MPV Neut % (Auto) Lymph % (Auto) [place] % (Auto) Eos % (Auto) Baso % (Auto) Neut # (Auto) Lymph # (Auto) [place] # (Auto) Eos # (Auto) Baso # (Auto) Sodium Potassium Chloride Carbon Dioxide Anion Gap BUN Creatinine Est GFR ( Amer) Est GFR (Non-Af Amer) Random Glucose Hemoglobin A1c Calcium Total Bilirubin AST ALT Alkaline Phosphatase Total Protein Albumin Globulin Albumin/Globulin Ratio Triglycerides Cholesterol LDL Cholesterol Direct HDL Cholesterol Thyroxine (T4) TSH 3rd Generation RPR Nonreactive Assessment & Plan (1) Depression Status: Acute Comment: psyche is managing
--- NOTE | 2017-06-23 11:46 | PCM.PYCHPN ---
Psychiatric Progress Note - Psychiatric Progress Note Patient seen today, length of contact: Patient evaluated, chart reviewed Patient Chief Complaint: "I'm trying not to have bad thoughts." Problems Identified/Issues Discussed: Patient continues to have minimal interest in talking with principal technical writer. He was lying in his hospital bed, making poor eye contact. He reports that he continues to feel depressed, but denies current active suicidal thought/plan/ intent. Denies AH/VH/paranoia/delusions. We discussed continued titration of Seroquel. Medication Change: Yes (Increase Seroquel) Medical Record Reviewed: Yes Consults ordered or reviewed: Medicine consult Mental Status Examination - Cognitive Function Orientation: Person, Place, Situation, Time Memory: Intact Attention: WNL Concentration: WNL Association: WNL Fund of Knowledge: [facility] Decription of patient's judgement and insights: Fair I/J - Mood Mood: Depressed - Affect Affect: Constricted, Depressed - Speech Speech: Appropriate - Formal Thought Process Formal Thought Process: No Impairment Psychotic Thoughts and Behaviors: Denies AH/VH/paranoia/delusions - Suicidal Ideation Suicidal Ideation: No - Homicidal Ideation Homicidal Ideation: No Goal/Treatment Plan - Goal/Treatment Plan Need for Continued Stay: Severe depression anxiety, Discharge may exacerbated symptoms Progress Toward Problem(s) and Goals/Treatment Plan: Cocaine induced mood disorder, Cocaine and Cannabis use disorders, r/o Schizoaffective Disorder -Individual and group therapy -Medicine consult -Increase Seroquel -Nicotine patch -Psychoeducation -Disposition planning Estimated Date of D/C: 06/26/17
[2017-06-24 09:17] VITALS: RESP 18
--- NOTE | 2017-06-24 11:11 | PCM.BM ---
Treatment Plan Problems - Problems identified on initial assessmt Hopelessness/Helplessness Date Initiated: 06/21/17 Time Initiated: 14:43 Assessment reference: NA Status: Active Denial Date Initiated: 06/24/17 Time Initiated: 11:09 Assessment reference: NA Status: Active Treatment assets and liabiliti Patient Assests: adapts well, cooperative, ADL independent, physically healthy, negotiates basic needs Patient Liabilities: live alone, poor support system, substance abuse - Milieu Protocol Maintain good personal hygiene: daily Encourage regular showers, every shift Remind patient to perform daily oral care, every shift Assist patient to perform ADL's Conduct patient checks and document Observation sheet: Q15 minutes Maintain personal safety: every shift Educate patient to report safety concerns to staff, every shift Monitor environment for contraband/sharps Medication safety: Monitor for expected outcome, potential side effects: every shift, Assess barriers to learning: every shift, Assess readiness for medication education: every shift Milieu Narrative: Cocaine induced mood disorder, Cocaine and Cannabis use disorders, r/o Schizoaffective Disorder -Individual and group therapy -Medicine consult -Increase Seroquel -Nicotine patch -Psychoeducation -Disposition planning Discharge/Continuing Care - Treatment Team Participation Patient/Family/SO Statement: Cocaine induced mood disorder, Cocaine and Cannabis use disorders, r/o Schizoaffective Disorder -Individual and group therapy -Medicine consult -Increase Seroquel -Nicotine patch -Psychoeducation -Disposition planning
--- NOTE | 2017-06-24 15:57 | PCM.PYCHPN ---
Psychiatric Progress Note - Psychiatric Progress Note Patient seen today, length of contact: Patient evaluated, chart reviewed Patient Chief Complaint: I feel tired and I have no motivation Problems Identified/Issues Discussed: pt evaluated with treatment team pt continues to feel depressed anhedonic , poor energy discussed with pt starting wellbutrin for depression, will discontinue seroquel and start trazodone qhs for sleep pt denied any current suicidal or homicidal ideations, denied perceptual disturbances Medical Problems: inpatient hospitalizations, hx of non compliance with treatment DSM 5 Symptoms Update: cocaine induced mood disorder cocaine use disorder cannabis use disorder Medication Change: Yes (stat wellbutrin) Medical Record Reviewed: Yes Mental Status Examination - Cognitive Function Orientation: Person, Place, Situation, Time Memory: Intact Attention: WNL Concentration: WNL Association: WNL Fund of Knowledge: WNL - Mood Mood: Depressed - Affect Affect: Constricted, Depressed - Speech Speech: Appropriate - Formal Thought Process Formal Thought Process: No Impairment - Suicidal Ideation Suicidal Ideation: No - Homicidal Ideation Homicidal Ideation: No Goal/Treatment Plan - Goal/Treatment Plan Need for Continued Stay: Severe depression anxiety, Discharge may exacerbated symptoms Progress Toward Problem(s) and Goals/Treatment Plan: discontinue seroquel start wellbutrin 75mg daily start trazdone 50mg qhs monitor for psychopharmacological effects Motivational and supportive therapy Estimated Date of D/C: 06/26/17
[2017-06-24 16:46] LABS: HEPATITIS B SURFACE AG Negative (NEGATIVE)
[2017-06-24 16:52] LABS: HEPATITIS A IGM NEGATIVE (NEGATIVE); HEPATITIS B CORE AB NEGATIVE (NEGATIVE)
[2017-06-24 17:05] LABS: HEPATITIS C ANTIBODY NEGATIVE (NEGATIVE)
[2017-06-25] MEDS: guaiFENesin 200 mg/10 ml Syrup UD PO PRN (15:00)
[2017-06-25] MEDS ORDERED: QUEtiapine 300 MG TABLET PO SCH (22:00)
[2017-06-26 09:06] VITALS: BP 141/76; PULSE 77; TEMP 97.3
[2017-06-26] MEDS: guaiFENesin 200 mg/10 ml Syrup UD PO PRN (09:30)
--- NOTE | 2017-06-26 09:49 | PCM.PYCHDC ---
Mental Status Examination - Mental Status Examination Orientation: Person, Place, Situation Memory: Intact Mood: Neutral Affect: Broad Speech: Appropriate Attention: WNL Concentration: WNL Association: WNL Fund of Knowledge: WNL Formal Thought Process: No Impairment Description of patient's judgement and insight: fair insight and judgment Psychotic Thoughts and Behaviors: pt denied any current perceptual disturbances, non elicited Suicidal Ideation: No Current Homicidal Ideation?: No Discharge Summary - Discharge Note Reason for Hospitalization: pt requested help pt with previous diagnosis of opiate use disorder and schizoaffective disorder, last hospitalized at [facility] 11/01, since then non compliant with medications or follow up, pt has been homeless, having financial difficulties, relapsed on cocaine and cannabis, pt has been depressed in context of substance use for last month, on day of evaluation pt presented to ER having suicidal ideations on evaluation pt guarded, not cooperative with interview, poor eye contact, reported passive suicidal ideations without intent or plan on unit pt denied homicidal ideations, denied command hallucinations Consultations:: List each consultation separately and include: 1. Reason for request. 2. Findings. 3. Follow-up Summary of Hospital Course include:: 1. Description of specific treatment plan utilized for patients during their course of treatmen. 2. Summarize the time- course for resolution of acute symptoms and/or regressed behaviors. 3. Describe issues identified and worked on during hospitalization. 4. Describe medication utilized. 5. Describe medical problems identified and treated. 6. Reassessment of suicide risk Summary of Hospital Course: pton admission was depressed isolative, pt needed a lot of encouragement to attaend groups and participate in treatment he was started on wellbutrin which was up titrated to 100mg daily for depression and to help reduce craving for cocaine pt was also started on seroquel for mood stabilization, it was up titrated to 300mg qhs motivational therapy was provided, pt gradually was less depressed, presented with brighter affect. on discharge mental status was stable, denied suicidal or homicidal ideations, denied perceptual disturbances, no reported side effects of medications Follow up arranged by social worker health services at [facility] [place] outpatient - Diagnosis (1) Depression Current Visit: Yes Status: Acute - Final Diagnosis (DSM 5) Condition upon Discharge: STABLE DSM 5: cocaine induced mood disorder with depressive features cocaine use disorder cannabis use disorder hx of schizoaffective disorder Disposition: HOME/ ROUTINE Follow-up Treatment Plan: discontinue seroquel start wellbutrin 75mg daily start trazdone 50mg qhs monitor for psychopharmacological effects Motivational and supportive therapy Prescriptions/Medication Reconciliation: buPROPion [Wellbutrin] 100 mg PO DAILY 30 Days #30 tab QUEtiapine [SEROquel] 300 mg PO HS 30 Days #30 tab - Smoking Cessation Reason for not providing: pt declined - Antipsychotic Medications Pt discharged on 2 or more routine antipsychotic medications: No
== END 2017-06-26 13:49 | disposition home or self-care (01) | DRG 747 ==
LOC: H.ER 08:52 → H.ERHOLD 11:52 → H.PSYCH 13:05
PROVIDERS: ADMIT Psychiatry & Neurology Psychiatry; ATTEND Psychiatry & Neurology Psychiatry
PROC: GZHZZZZ Group Psychotherapy (ICD-10-PCS; principal; 2017-06-21)
PROC: HZ52ZZZ Individual Psychotherapy for Substance Abuse Treatment, Cognitive-Behavioral (ICD-10-PCS; 2017-06-21)
PROC: GZ58ZZZ Individual Psychotherapy, Cognitive-Behavioral (ICD-10-PCS; 2017-06-21)
DX: F14.14 Cocaine abuse with cocaine-induced mood disorder (principal); F25.9 Schizoaffective disorder, unspecified; F32.9 Major depressive disorder, single episode, unspecified; F12.90 Cannabis use, unspecified, uncomplicated; F43.10 Post-traumatic stress disorder, unspecified; Z91.14 Patient's other noncompliance with medication regimen; Z91.19 Patient's noncompliance with other medical treatment and regimen; F17.210 Nicotine dependence, cigarettes, uncomplicated; Z59.0 Homelessness